=== PATIENT | male | born 1990 | race Two or more races ===

== ENCOUNTER 2022-07-06 22:07 | Emergency (ER) | payer MEDICAID, OTHER ==
[~2022-07-06] VITALS: Ht 175.3 cm; Wt 81.0 kg
[2022-07-07] MEDS ORDERED: ONDANSETRON ODT 4 MG TAB PO ONE (06:45)
[2022-07-07] MEDS ORDERED: LIDOCAINE VISCOUS 2% 15ML UD PO ONE (06:45)
[2022-07-07] MEDS ORDERED: FAMOTIDINE 20 MG TAB PO ONE (06:45)
[2022-07-07] MEDS ORDERED: MAALOX PLUS or MAALOX 30 ML PO ONE (06:45)
[2022-07-07 06:49] LABS: Basophils # (auto) 0.1 10 ^3/uL (0-0.2); Basophils % (auto) 0.7 % (0.0-2.0); Eosinophils # (auto) 0.2 10 ^3/uL (0-0.8); Eosinophils % (auto) 1.9 % (0.0-7.0); Hematocrit 44.6 % (41.0-53.0); Hemoglobin 14.9 g/dL (13.5-17.5); Lymphocytes # (auto) 2.5 10 ^3/uL (0.4-5.4); Lymphocytes % (auto) 24.9 % (10.0-50.0); Mean Corpuscular Hemoglobin 28.1 pg (28.0-32.0); Mean Corpuscular Hgb Conc. 33.3 g/dL (32.0-36.0); Mean Corpuscular Volume 84.5 fL (80.0-100.0); Monocytes # (auto) 0.7 10 ^3/uL (0-1.3); Monocytes % (auto) 7.4 % (0.0-12.0); Neutrophils # (auto) 6.6 10 ^3/uL (1.6-8.6); Neutrophils % (auto) 65.1 % (37.0-80.0); Nucleated Red Blood Cells % 0.1 %; Red Blood Cells 5.28 10^6/uL (4.5-5.90); Red Cell Distribution Width 13.9 % (11.8-14.3); White Blood Cell 10.2 10^3/uL (4.4-10.8)
[2022-07-07 07:03] LABS: Anion Gap 3 (5-15); Blood Alcohol < 3.0 mg/dL (0-5); Blood Urea Nitrogen 12 mg/dL (7-18); Calcium 9.2 mg/dL (8.5-10.1); Carbon Dioxide 30 mmol/L (21-32); Chloride 104 mmol/L (98-107); Glucose 91 mg/dL (74-106); Potassium 3.7 mmol/L (3.5-5.1); Sodium 137 mmol/L (136-145)
[2022-07-07 07:06] LABS: GFR African American 123 mL/min; GFR Non-African American 102 mL/min
[2022-07-07] MEDS ORDERED: LORazepam 0.5 MG TAB PO ONE (08:15)
[2022-07-07 10:56] LABS: Barbiturate Scree,Urine NEGATIVE (NEGATIVE); Cannabinoid Screen, Urine POSITIVE (NEGATIVE)
[2022-07-07 11:04] LABS: Amphetamine Screen, Urine POSITIVE (NEGATIVE); Benzodiazephine Screen, Urine NEGATIVE (NEGATIVE); Cocaine Screen, Urine NEGATIVE (NEGATIVE); Opiate Scree,Urine NEGATIVE (NEGATIVE); Phencyclidine Screen, Urine NEGATIVE (NEGATIVE)
[2022-07-07] MEDS: OLANZapine 5 MG TAB PO SCH (21:59)
[2022-07-08] MEDS ORDERED: LORazepam 0.5 MG TAB PO ONE
[2022-07-08] MEDS: OLANZapine 5 MG TAB PO SCH ×2 (10:56→22:13)
[2022-07-09] MEDS: OLANZapine 5 MG TAB PO SCH ×2 (10:23→22:00)
[2022-07-10] MEDS: OLANZapine 5 MG TAB PO SCH ×2 (03:12→10:30)
[2022-07-10 11:20] VITALS: BP 138/84
== END 2022-07-10 11:48 | disposition short-term general hospital (02) ==
LOC: ER 22:07
DX: R45.851 Suicidal ideations (principal); R44.0 Auditory hallucinations; F41.9 Anxiety disorder, unspecified; F20.9 Schizophrenia, unspecified; F31.9 Bipolar disorder, unspecified; F12.10 Cannabis abuse, uncomplicated; F15.10 Other stimulant abuse, uncomplicated; Z87.891 Personal history of nicotine dependence
CPT/HCPCS: 36415; 71045; 80048; 80307; 80320; 85025; 99285; Q0162